=== PATIENT | male | born 1970 | race Caucasian/White ===

== ENCOUNTER 2017-02-26 08:37 | Emergency (ER) | payer SELFPAY ==
[2017-02-26 08:59] VITALS: O2SAT 99
--- NOTE | 2017-02-26 09:21 | ED PDOC ---
HPI: CCC, URI, Sore Throat Time Seen by Provider: 02/26/17 08:54 Chief Complaint (Nursing): ENT Problem Chief Complaint (Provider): ENT Problem History Per: Patient History/Exam Limitations: no limitations Onset/Duration Of Symptoms: Days Current Symptoms Are (Timing): Still Present Location Of Pain: Throat Sick Contacts (Context): None Associated Symptoms: Fever. denies: Cough Ear Symptoms: Bilateral: None Severity: Mild Additional Complaint(s): Patient is a 46 year old male who presents to ED for sore throat and fever for 3 days. Patient denies cough, chest pain, nasal congestion or difficulty swallowing. Past Medical History Reviewed: Historical Data, Nursing Documentation, Vital Signs Vital Signs: Last Vital Signs Temp 100.1 F H 02/26/17 09:59 Pulse 75 02/26/17 09:59 Resp 16 02/26/17 09:59 BP 127/81 02/26/17 09:59 Pulse Ox 99 02/26/17 09:59 - Medical History PMH: No Chronic Diseases - Surgical History Surgical History: Tonsillectomy - Family History Family History: States: No Known Family Hx - Living Arrangements Living Arrangements: With Family - Home Medications Home Medications: Ambulatory Orders Medication Instructions Recorded Amoxicillin/Clavulanate [Augmentin 1 tab PO BID #20 tab 02/26/17 875 MG-125 MG] - Allergies Allergies/Adverse Reactions: Allergies Allergy/AdvReac Type Severity Reaction Status Date / Time No Known Allergies Allergy Verified 02/26/17 09:16 Review of Systems ROS Statement: Except As Marked, All Systems Reviewed And Found Negative Constitutional: Positive for: Fever Eyes: Negative for: Vision Change ENT: Positive for: Throat Pain. Negative for: Ear Pain, Throat Swelling Cardiovascular: Negative for: Chest Pain Respiratory: Negative for: Cough, Shortness of Breath Physical Exam - Reviewed Nursing Documentation Reviewed: Yes Vital Signs Reviewed: Yes - Physical Exam Appears: Positive for: Non-toxic, No Acute Distress Skin: Positive for: Normal Color, Warm. Negative for: Rash Eye Exam: Positive for: Normal appearance ENT: Positive for: Pharyngeal Erythema. Negative for: Nasal Congestion, Tonsillar Exudate, Tonsillar Swelling Neck: Positive for: Normal, Painless ROM Back: Positive for: Normal Inspection Extremity: Positive for: Normal ROM Neurologic/Psych: Positive for: Alert, Oriented - ECG O2 Sat by Pulse Oximetry: 99 (RA) Pulse Ox Interpretation: Normal Medical Decision Making Medical Decision Making: Time: 914 Initial impression: Pharyngitis r/o strep Initial plan: -- Rapid strep Scribe Attestation: Documented by Danya Batista acting as a scribe for Simeon Castellon MD MD Scribe Attestation: All medical record entries made by the Scribe were at my direction and personally dictated by me. I have reviewed the chart and agree that the record accurately reflects my personal performance of the history, physical exam, medical decision making, and the department course for this patient. I have also personally directed, reviewed, and agree with the discharge instructions and disposition. Disposition - Clinical Impression Clinical Impression: Pharyngitis - Disposition Referrals: [facility] [Outside] Disposition: Routine/Home Disposition Time: 10:00 Condition: FAIR Prescriptions: Amoxicillin/Clavulanate [Augmentin 875 MG-125 MG] 1 tab PO BID #20 tab Instructions: Pharyngitis (ED)
[2017-02-26 10:00] VITALS: BP 127/81; PULSE 75; RESP 16; TEMP 100.1
== END 2017-02-26 10:11 | disposition home or self-care (01) ==
LOC: H.ER 08:37
DX: J02.9 Acute pharyngitis, unspecified (principal)